=== PATIENT | male | born 2000 | race Caucasian/White ===

== ENCOUNTER → 2020-12-24 | Outpatient (CLI) | payer BC, OTHER | LOC: SLEEP 14:45 | DX: G47.33 Obstructive sleep apnea (adult) (pediatric) (principal); R10.9 Unspecified abdominal pain; F33.0 Major depressive disorder, recurrent, mild; F41.1 Generalized anxiety disorder; R53.83 Other fatigue | CPT/HCPCS: 95810 ==

== ENCOUNTER 2021-01-14 01:59 | Emergency (ER) | payer BC, OTHER | END 2021-01-14 03:40 | disposition home or self-care (01) | LOC: ER1 01:59 | DX: Z48.817 Encounter for surgical aftercare following surgery on the skin and subcutaneous tissue (principal) | CPT/HCPCS: 99282 ==